=== PATIENT | female | born 1940 | race Caucasian/White ===

== ENCOUNTER 2023-03-11 21:04 | Inpatient (IN) ==
[2023-03-11] MEDS ORDERED: IOPAMIDOL 100 ML BOTTLE IV ONE (21:05)
[2023-03-11] MEDS ORDERED: IPRATROPIUM/ALBUTEROL 3 ML AMPUL.NEB NEB ONE ×2 (21:11→23:09)
[2023-03-11] MEDS ORDERED: methylPREDNISolone SOD SUCC 125 MG/2 ML VIAL IV ONE (21:11)
[2023-03-11 22:19] LABS: Basophils # (Auto) 0.03 K/mcL (0.00-0.30); Basophils % (Auto) 0.6 % (0.0-2.0); Eosinophils # (Auto) 0.17 K/mcL (0.00-0.70); Eosinophils % (Auto) 3.4 % (0.0-7.0); Hematocrit 43.4 % (34.1-44.9); Lymphocytes # (Auto) 1.59 K/mcL (1.50-4.80); Lymphocytes % (Auto) 32.1 % (15.5-49.0); Mean Cell Volume 95.4 fL (80.0-100.0); Mean Corpuscular HGB Conc 32.3 g/dL (31.0-36.0); Mean Platelet Volume 10.1 fL (8.8-12.5); Monocytes # (Auto) 0.41 K/mcL (0.10-0.90); Monocytes % (Auto) 8.3 % (1.0-12.0); Neutrophils % (Auto) 55.4 % (38.0-78.0); Platelet Count 190 K/mcL (140-440); RBC 4.55 M/mcL (3.59-5.38); Red Cell Distribution Width 12.5 % (11.5-14.5)
[2023-03-11 23:03] LABS: ALT/SGPT 11 U/L (<40); AST/SGOT 20 U/L (<32); Albumin/Globulin Ratio 1.3 (1.0-2.3); Alkaline Phosphatase 123 U/L (39-117); Bilirubin,Total 0.5 mg/dL (0.1-1.0); Blood Urea Nitrogen 29 mg/dL (8-23); Calcium 9.5 mg/dL (8.6-10.4); Carbon Dioxide 23 mmol/L (22-30); Chloride 106 mmol/L (96-108); Globulin 3.1 gm/dL (2.2-3.7); Glomerular Filtration Rate 51; Glucose 84 mg/dL (70-105); proBNP 505.7 pg/mL (<450.0)
[2023-03-11] MEDS ORDERED: cefTRIAXone 1 GM VIAL IV ONE (23:14)
[2023-03-11] MEDS ORDERED: AZITHROMYCIN 500 MG in DEXTROSE 5% IN WATER 250 ML IV ONE (23:14)
[2023-03-11] MEDS ORDERED: ALBUTEROL SULFATE 2.5 MG/3 ML NEBULIZER NEB PRN (23:48)
[2023-03-11] MEDS ORDERED: ONDANSETRON 4 MG/2 ML VIAL IV ONE (23:48)
[2023-03-12] MEDS: IPRATROPIUM/ALBUTEROL 3 ML AMPUL.NEB NEB SCH ×6 (01:30→23:30)
[2023-03-12] MEDS: methylPREDNISolone SOD SUCC 40 MG/ML VIAL IV SCH ×2 (04:02→05:15)
[2023-03-12] MEDS ORDERED: 0.9 % SODIUM CHLORIDE 10 ML SYRINGE IV SCH (06:00)
[2023-03-12] MEDS ORDERED: ALBUTEROL SULFATE 60 PUFF INHALER INH PRN (08:48)
[2023-03-12] MEDS ORDERED: ACETAMINOPHEN 500 MG TABLET PO PRN (08:48)
[2023-03-12] MEDS ORDERED: ONDANSETRON 4 MG/2 ML VIAL IV PRN (08:50)
[2023-03-12] MEDS ORDERED: LACTULOSE 20 GM/30 ML ORAL.SOL PO PRN (08:50)
[2023-03-12] MEDS ORDERED: SENNOSIDES 1 TABLET PO PRN (08:50)
[2023-03-12] MEDS ORDERED: ACETAMINOPHEN 325 MG TABLET PO PRN (08:53)
[2023-03-12] MEDS ORDERED: guaiFENesin/DEXTROMETHORPHAN 5ML UD CUP PO PRN (08:55)
[2023-03-12] MEDS: METOPROLOL SUCCINATE 25 MG TAB.XL.24H PO SCH (09:26)
[2023-03-12] MEDS: DOCUSATE SODIUM 100 MG CAPSULE PO SCH ×2 (09:26→20:02)
[2023-03-12] MEDS: FLUTICASONE/SALMETEROL 250/50 INHALER #14 INH SCH ×2 (09:41→21:31)
[2023-03-12] MEDS: APIXABAN 2.5 MG TABLET PO SCH ×2 (10:50→20:02)
[2023-03-12] MEDS: methylPREDNISolone SOD SUCC 125 MG/2 ML VIAL IV SCH ×2 (15:03→21:31)
[2023-03-12] MEDS: AZITHROMYCIN 250 MG TABLET PO SCH (15:04)
[2023-03-12] MEDS: 0.9 % SODIUM CHLORIDE 10 ML SYRINGE IV SCH ×2 (15:05→21:31)
[2023-03-12] MEDS ORDERED: traZODone HCL 50 MG TABLET PO PRN (20:08)
[2023-03-12] MEDS ORDERED: POLYETHYLENE GLYCOL 3350 17 GM PACKET PO SCH (21:00)
[2023-03-12] MEDS ORDERED: APIXABAN 2.5 MG TABLET PO SCH (21:00)
[2023-03-13] MEDS: IPRATROPIUM/ALBUTEROL 3 ML AMPUL.NEB NEB SCH ×6 (03:35→22:45)
[2023-03-13] MEDS: methylPREDNISolone SOD SUCC 125 MG/2 ML VIAL IV SCH ×3 (05:17→22:06)
[2023-03-13] MEDS: 0.9 % SODIUM CHLORIDE 10 ML SYRINGE IV SCH ×3 (05:17→22:06)
[2023-03-13 06:09] LABS: Basophils # (Auto) 0 K/mcL (0.00-0.30); Basophils % (Auto) 0 % (0.0-2.0); Eosinophils # (Auto) 0 K/mcL (0.00-0.70); Eosinophils % (Auto) 0 % (0.0-7.0); Hematocrit 39.3 % (34.1-44.9); Hemoglobin 12.5 g/dL (11.2-15.7); Lymphocytes # (Auto) 0.65 K/mcL (1.50-4.80); Lymphocytes % (Auto) 6.3 % (15.5-49.0); Mean Cell Volume 98.3 fL (80.0-100.0); Mean Corpuscular HGB Conc 31.8 g/dL (31.0-36.0); Mean Platelet Volume 10.1 fL (8.8-12.5); Monocytes # (Auto) 0.41 K/mcL (0.10-0.90); Neutrophils % (Auto) 89.3 % (38.0-78.0); Platelet Count 181 K/mcL (140-440); Red Cell Distribution Width 12.5 % (11.5-14.5); WBC 10.4 K/mcL (4.5-11.0)
[2023-03-13 06:53] LABS: ALT/SGPT 10 U/L (<40); AST/SGOT 21 U/L (<32); Albumin 3.5 gm/dL (3.2-5.2); Albumin/Globulin Ratio 1.4 (1.0-2.3); Alkaline Phosphatase 107 U/L (39-117); Bilirubin,Total 0.3 mg/dL (0.1-1.0); Blood Urea Nitrogen 23 mg/dL (8-23); Calcium 9.4 mg/dL (8.6-10.4); Carbon Dioxide 23 mmol/L (22-30); Chloride 104 mmol/L (96-108); Globulin 2.5 gm/dL (2.2-3.7); Glomerular Filtration Rate 58; Glucose 164 mg/dL (70-105)
[2023-03-13] MEDS: METOPROLOL SUCCINATE 25 MG TAB.XL.24H PO SCH (10:10)
[2023-03-13] MEDS: DOCUSATE SODIUM 100 MG CAPSULE PO SCH ×2 (10:10→20:29)
[2023-03-13] MEDS: APIXABAN 2.5 MG TABLET PO SCH ×2 (10:11→20:29)
[2023-03-13] MEDS: FLUTICASONE/SALMETEROL 250/50 INHALER #14 INH SCH ×2 (10:11→20:29)
[2023-03-13] MEDS: CALCIUM CARBONATE 500 MG TAB.CHEW CHEWED PRN ×2 (10:46→21:02)
[2023-03-13] MEDS: AZITHROMYCIN 250 MG TABLET PO SCH (15:30)
[2023-03-14] MEDS: IPRATROPIUM/ALBUTEROL 3 ML AMPUL.NEB NEB SCH ×3 (02:19→10:39)
[2023-03-14] MEDS: 0.9 % SODIUM CHLORIDE 10 ML SYRINGE IV SCH (05:50)
[2023-03-14] MEDS: methylPREDNISolone SOD SUCC 125 MG/2 ML VIAL IV SCH (05:50)
[2023-03-14 06:19] LABS: Basophils # (Auto) 0.01 K/mcL (0.00-0.30); Basophils % (Auto) 0.1 % (0.0-2.0); Eosinophils # (Auto) 0 K/mcL (0.00-0.70); Eosinophils % (Auto) 0 % (0.0-7.0); Hemoglobin 12.4 g/dL (11.2-15.7); Lymphocytes # (Auto) 0.63 K/mcL (1.50-4.80); Lymphocytes % (Auto) 5.2 % (15.5-49.0); Mean Cell Volume 97.5 fL (80.0-100.0); Mean Corpuscular HGB Conc 31.8 g/dL (31.0-36.0); Monocytes # (Auto) 0.47 K/mcL (0.10-0.90); Monocytes % (Auto) 3.9 % (1.0-12.0); Neutrophils % (Auto) 90.1 % (38.0-78.0); Platelet Count 188 K/mcL (140-440); Red Cell Distribution Width 12.7 % (11.5-14.5); WBC 12.2 K/mcL (4.5-11.0)
[2023-03-14 06:52] LABS: ALT/SGPT 17 U/L (<40); AST/SGOT 25 U/L (<32); Albumin 3.3 gm/dL (3.2-5.2); Albumin/Globulin Ratio 1.3 (1.0-2.3); Alkaline Phosphatase 99 U/L (39-117); Bilirubin,Total 0.2 mg/dL (0.1-1.0); Blood Urea Nitrogen 29 mg/dL (8-23); Calcium 9.2 mg/dL (8.6-10.4); Carbon Dioxide 25 mmol/L (22-30); Chloride 106 mmol/L (96-108); Globulin 2.5 gm/dL (2.2-3.7); Glomerular Filtration Rate 51; Glucose 148 mg/dL (70-105)
[2023-03-14] MEDS: METOPROLOL SUCCINATE 25 MG TAB.XL.24H PO SCH (08:39)
[2023-03-14] MEDS: DOCUSATE SODIUM 100 MG CAPSULE PO SCH (08:39)
[2023-03-14] MEDS: APIXABAN 2.5 MG TABLET PO SCH (08:40)
[2023-03-14] MEDS: FLUTICASONE/SALMETEROL 250/50 INHALER #14 INH SCH (08:46)
== END 2023-03-14 11:05 | disposition home or self-care (01) | DRG 191 ==
LOC: ED 21:04 → ICU 03-12 00:40
PROVIDERS: ADMIT Internal Medicine; ATTEND Internal Medicine

== ENCOUNTER 2023-06-23 22:36 | Inpatient (IN) ==
[2023-06-23 23:21] LABS: Hematocrit 43.9 % (34.1-44.9); Hemoglobin 14.3 g/dL (11.2-15.7); Mean Cell Volume 97.3 fL (80.0-100.0); Mean Corpuscular HGB Conc 32.6 g/dL (31.0-36.0); Mean Platelet Volume 10.1 fL (8.8-12.5); Platelet Count 189 K/mcL (140-440); RBC 4.51 M/mcL (3.59-5.38); Red Cell Distribution Width 12.7 % (11.5-14.5); WBC 6.1 K/mcL (4.5-11.0)
[2023-06-23] MEDS: IPRATROPIUM/ALBUTEROL 3 ML AMPUL.NEB NEB ONE (23:27)
[2023-06-23] MEDS: ACETAMINOPHEN 325 MG TABLET PO ONE (23:40)
[2023-06-23] MEDS: methylPREDNISolone SOD SUCC 125 MG/2 ML VIAL IV ONE (23:40)
[2023-06-23 23:48] LABS: INR 1.1 (0.9-1.1); Prothrombin Time 15.2 sec (11.9-14.5)
[2023-06-23 23:57] LABS: Band Neutrophils % 2 % (0-10); Eosinophils % (Manual) 1 % (0-7); Lymphocytes % 22 % (15-49); Monocytes % (Manual) 5 % (1-12); Platelet Estimate NORMAL (Normal); RBC Morphology NORMAL (Normal); Segmented Neutrophils % 70 % (38-78)
[2023-06-24 00:10] LABS: ALT/SGPT 7 U/L (<40); AST/SGOT 28 U/L (<32); Albumin 4.2 gm/dL (3.2-5.2); Albumin/Globulin Ratio 1.4 (1.0-2.3); Alkaline Phosphatase 102 U/L (39-117); Anion Gap 18.6 (8.0-16.0); Bilirubin,Total 0.4 mg/dL (0.1-1.0); Blood Urea Nitrogen 21 mg/dL (8-23); Calcium 9.4 mg/dL (8.6-10.4); Carbon Dioxide 21 mmol/L (22-30); Chloride 101 mmol/L (96-108); Glomerular Filtration Rate 41; Glucose 147 mg/dL (70-105)
[2023-06-24] MEDS: VANCOMYCIN 750 MG in 0.9 % SODIUM CHLORIDE 250 ML IV ONE (01:15)
[2023-06-24] MEDS: MEROPENEM 0.5 GM in 0.9 % SODIUM CHLORIDE 50 ML IV SCH (01:20)
[2023-06-24] MEDS: morphine 2 MG/ML VIAL IV ONE (01:27)
[2023-06-24] MEDS ORDERED: morphine 2 MG/ML VIAL IV PRN (01:31)
[2023-06-24] MEDS ORDERED: ACETAMINOPHEN 650 MG/65 ML BAG IV PRN (01:31)
[2023-06-24] MEDS ORDERED: ONDANSETRON 4 MG/2 ML VIAL IV PRN (01:31)
[2023-06-24] MEDS ORDERED: IPRATROPIUM/ALBUTEROL 3 ML AMPUL.NEB NEB SCH (01:45)
[2023-06-24] MEDS ORDERED: DEXMEDETOMIDINE 400 MCG in PREMIX 1 BAG IV PRN (01:45)
[2023-06-24] MEDS: VANCOMYCIN PER PHARMACY IV ONE (01:52)
[2023-06-24] MEDS: morphine 2 MG/ML VIAL ONE (01:53)
[2023-06-24] MEDS: 0.9 % SODIUM CHLORIDE 500 ML IV ONE (02:05)
[2023-06-24 02:25] LABS: Appearance,Urine Clear (Clear); Bilirubin,Urine Negative (Negative); Color,Urine Yellow; Culture Indicated,Urine No; Glucose,Urine (UA) Negative (Negative); Ketones,Urine 15 mg/dL (Negative); Leukocyte Esterase,Urine Negative /uL (Negative); Nitrate,Urine Negative (Negative); Protein,Urine Negative (Negative); Specific Gravity,Urine 1.025 (1.000-1.035); Urine Blood Negative ery/mcL (Negative); Urobilinogen,Urine Normal
[2023-06-24] MEDS: AZITHROMYCIN 500 MG in DEXTROSE 5% IN WATER 250 ML IV SCH (02:33)
[2023-06-24] MEDS: REMDESIVIR 200 MG in 0.9 % SODIUM CHLORIDE 250 ML IV ONE (03:11)
[2023-06-24] MEDS: 0.9 % SODIUM CHLORIDE 1,000 ML IV SCH (05:09)
[2023-06-24] MEDS ORDERED: LACTULOSE 20 GM/30 ML ORAL.SOL PO PRN (06:38)
[2023-06-24] MEDS ORDERED: SENNOSIDES 1 TABLET PO PRN (06:38)
[2023-06-24] MEDS: CEFEPIME 2 GM VIAL IV SCH (07:13)
[2023-06-24] MEDS: IPRATROPIUM/ALBUTEROL 3 ML AMPUL.NEB NEB SCH ×2 (07:18→17:16)
[2023-06-24 08:57] LABS: ALT/SGPT 6 U/L (<40); AST/SGOT 25 U/L (<32); Albumin 3.3 gm/dL (3.2-5.2); Albumin/Globulin Ratio 1.3 (1.0-2.3); Alkaline Phosphatase 74 U/L (39-117); Bilirubin,Direct < 0.2 mg/dL (0-0.3); Bilirubin,Total 0.3 mg/dL (0.1-1.0); Blood Urea Nitrogen 20 mg/dL (8-23); C-Reactive Protein 3.15 mg/dL (0.03-0.80); Calcium 8.6 mg/dL (8.6-10.4); Carbon Dioxide 21 mmol/L (22-30); Chloride 103 mmol/L (96-108); Globulin 2.6 gm/dL (2.2-3.7); Glomerular Filtration Rate 58; Glucose 188 mg/dL (70-105); Lactate Dehydrogenase 202 U/L (135-225); Phosphorous 2.8 mg/dL (2.5-4.5); Triglycerides 44 mg/dL (<150); Uric Acid 4.4 mg/dL (2.5-8.0)
[2023-06-24] MEDS: DEXAMETHASONE 10 MG/ML VIAL IV SCH (09:05)
[2023-06-24] MEDS: DOCUSATE SODIUM 100 MG CAPSULE PO SCH (09:05)
[2023-06-24] MEDS: ONDANSETRON 4 MG/2 ML VIAL IV PRN (09:18)
[2023-06-24] MEDS: APIXABAN 2.5 MG TABLET PO SCH ×2 (10:29→21:59)
[2023-06-24] MEDS: 0.9 % SODIUM CHLORIDE 10 ML SYRINGE IV SCH (14:01)
[2023-06-24] MEDS: REMDESIVIR 100 MG in 0.9 % SODIUM CHLORIDE 250 ML IV SCH (16:46)
[2023-06-24] MEDS: IPRATROPIUM/ALBUTEROL 3 ML AMPUL.NEB NEB ONE (17:19)
[2023-06-24] MEDS: ACETAMINOPHEN 325 MG TABLET PO PRN (18:32)
[2023-06-25 06:40] LABS: Basophils # (Auto) 0.01 K/mcL (0.00-0.30); Basophils % (Auto) 0.1 % (0.0-2.0); Eosinophils # (Auto) 0 K/mcL (0.00-0.70); Eosinophils % (Auto) 0 % (0.0-7.0); Hematocrit 37.2 % (34.1-44.9); Hemoglobin 11.7 g/dL (11.2-15.7); Lymphocytes # (Auto) 0.88 K/mcL (1.50-4.80); Lymphocytes % (Auto) 6.4 % (15.5-49.0); Mean Cell Volume 101.1 fL (80.0-100.0); Mean Corpuscular HGB Conc 31.5 g/dL (31.0-36.0); Mean Platelet Volume 10.3 fL (8.8-12.5); Monocytes # (Auto) 0.55 K/mcL (0.10-0.90); Neutrophils % (Auto) 89.1 % (38.0-78.0); Platelet Count 166 K/mcL (140-440); RBC 3.68 M/mcL (3.59-5.38); WBC 13.8 K/mcL (4.5-11.0)
[2023-06-25 07:01] LABS: ALT/SGPT 8 U/L (<40); AST/SGOT 27 U/L (<32); Albumin 3.4 gm/dL (3.2-5.2); Albumin/Globulin Ratio 1.3 (1.0-2.3); Alkaline Phosphatase 73 U/L (39-117); Bilirubin,Direct < 0.2 mg/dL (0-0.3); Bilirubin,Total 0.2 mg/dL (0.1-1.0); Blood Urea Nitrogen 22 mg/dL (8-23); Calcium 8.6 mg/dL (8.6-10.4); Carbon Dioxide 20 mmol/L (22-30); Chloride 110 mmol/L (96-108); Globulin 2.7 gm/dL (2.2-3.7); Glomerular Filtration Rate 67; Glucose 114 mg/dL (70-105); Lactate Dehydrogenase 238 U/L (135-225); Phosphorous 3.2 mg/dL (2.5-4.5); Triglycerides 31 mg/dL (<150)
[2023-06-25] MEDS: ALBUTEROL SULFATE 2.5 MG/3 ML NEBULIZER NEB PRN (21:27)
[2023-06-26 06:36] LABS: Basophils # (Auto) 0.01 K/mcL (0.00-0.30); Basophils % (Auto) 0.1 % (0.0-2.0); Eosinophils # (Auto) 0 K/mcL (0.00-0.70); Eosinophils % (Auto) 0 % (0.0-7.0); Hematocrit 36.7 % (34.1-44.9); Hemoglobin 11.9 g/dL (11.2-15.7); Lymphocytes # (Auto) 1.02 K/mcL (1.50-4.80); Lymphocytes % (Auto) 7.8 % (15.5-49.0); Mean Cell Volume 98.7 fL (80.0-100.0); Mean Corpuscular HGB Conc 32.4 g/dL (31.0-36.0); Mean Platelet Volume 10.2 fL (8.8-12.5); Monocytes # (Auto) 0.62 K/mcL (0.10-0.90); Monocytes % (Auto) 4.8 % (1.0-12.0); Neutrophils % (Auto) 87.1 % (38.0-78.0); Platelet Count 170 K/mcL (140-440); RBC 3.72 M/mcL (3.59-5.38); Red Cell Distribution Width 13.1 % (11.5-14.5)
[2023-06-26 07:10] LABS: ALT/SGPT 15 U/L (<40); AST/SGOT 34 U/L (<32); Albumin 3.1 gm/dL (3.2-5.2); Albumin/Globulin Ratio 1.1 (1.0-2.3); Alkaline Phosphatase 76 U/L (39-117); Bilirubin,Direct < 0.2 mg/dL (0-0.3); Bilirubin,Total 0.4 mg/dL (0.1-1.0); Blood Urea Nitrogen 22 mg/dL (8-23); Calcium 8.7 mg/dL (8.6-10.4); Carbon Dioxide 19 mmol/L (22-30); Chloride 109 mmol/L (96-108); Globulin 2.9 gm/dL (2.2-3.7); Glomerular Filtration Rate 79; Glucose 110 mg/dL (70-105); Lactate Dehydrogenase 300 U/L (135-225); Phosphorous 2.6 mg/dL (2.5-4.5); Triglycerides 48 mg/dL (<150); Uric Acid 3.7 mg/dL (2.5-8.0)
[2023-06-26] MEDS ORDERED: ENALAPRILAT 1.25 MG/ML VIAL IV PRN (14:48)
[2023-06-26] MEDS ORDERED: LABETALOL HCL 20 MG/4 ML VIAL IV PRN (14:48)
[2023-06-27 07:24] LABS: Basophils # (Auto) 0.01 K/mcL (0.00-0.30); Basophils % (Auto) 0.1 % (0.0-2.0); Eosinophils # (Auto) 0 K/mcL (0.00-0.70); Eosinophils % (Auto) 0 % (0.0-7.0); Hematocrit 39.8 % (34.1-44.9); Hemoglobin 13.2 g/dL (11.2-15.7); Lymphocytes # (Auto) 1.42 K/mcL (1.50-4.80); Lymphocytes % (Auto) 14.2 % (15.5-49.0); Mean Cell Volume 96.4 fL (80.0-100.0); Mean Corpuscular HGB Conc 33.2 g/dL (31.0-36.0); Mean Platelet Volume 10.6 fL (8.8-12.5); Monocytes # (Auto) 0.57 K/mcL (0.10-0.90); Monocytes % (Auto) 5.7 % (1.0-12.0); Neutrophils % (Auto) 79.7 % (38.0-78.0); Platelet Count 169 K/mcL (140-440); RBC 4.13 M/mcL (3.59-5.38)
[2023-06-27 07:43] LABS: ALT/SGPT 16 U/L (<40); AST/SGOT 42 U/L (<32); Albumin 3.5 gm/dL (3.2-5.2); Albumin/Globulin Ratio 1.2 (1.0-2.3); Alkaline Phosphatase 85 U/L (39-117); Bilirubin,Direct < 0.2 mg/dL (0-0.3); Bilirubin,Total 0.6 mg/dL (0.1-1.0); Blood Urea Nitrogen 21 mg/dL (8-23); Carbon Dioxide 24 mmol/L (22-30); Chloride 106 mmol/L (96-108); Glomerular Filtration Rate 79; Glucose 111 mg/dL (70-105); Lactate Dehydrogenase 382 U/L (135-225); Phosphorous 2.4 mg/dL (2.5-4.5); Triglycerides 75 mg/dL (<150); Uric Acid 3.4 mg/dL (2.5-8.0)
[2023-06-27] MEDS: METOPROLOL SUCCINATE 25 MG TAB.XL.24H PO SCH (09:03)
[2023-06-27] MEDS: BUDESONIDE 0.5 MG/2 ML AMPUL.NEB NEB SCH (12:27)
== END 2023-06-27 15:15 | disposition home or self-care (01) | DRG 177 ==
LOC: ED 22:36 → ICU 06-24 04:11 → MEDSUR 06-25 14:45
PROVIDERS: ADMIT Internal Medicine; ATTEND Internal Medicine

== ENCOUNTER 2024-02-02 12:32 | Inpatient (IN) ==
[2024-02-02 13:32] LABS: Basophils # (Auto) 0.01 K/mcL (0.00-0.30); Basophils % (Auto) 0.1 % (0.0-2.0); Eosinophils # (Auto) 0.16 K/mcL (0.00-0.70); Eosinophils % (Auto) 1.7 % (0.0-7.0); Hematocrit 46.8 % (34.1-44.9); Hemoglobin 14.8 g/dL (11.2-15.7); Lymphocytes # (Auto) 1.35 K/mcL (1.50-4.80); Lymphocytes % (Auto) 14.2 % (15.5-49.0); Mean Cell Volume 99.2 fL (80.0-100.0); Mean Corpuscular HGB Conc 31.6 g/dL (31.0-36.0); Mean Platelet Volume 9.9 fL (8.8-12.5); Monocytes # (Auto) 0.71 K/mcL (0.10-0.90); Monocytes % (Auto) 7.5 % (1.0-12.0); Neutrophils % (Auto) 76.1 % (38.0-78.0); Platelet Count 217 K/mcL (140-440); RBC 4.72 M/mcL (3.59-5.38); Red Cell Distribution Width 13.1 % (11.5-14.5); WBC 9.5 K/mcL (4.5-11.0)
[2024-02-02 13:51] LABS: ALT/SGPT 19 U/L (<40); AST/SGOT 28 U/L (<32); Albumin/Globulin Ratio 1.5 (1.0-2.3); Alkaline Phosphatase 111 U/L (39-117); Bilirubin,Total 0.7 mg/dL (0.1-1.0); Blood Urea Nitrogen 22 mg/dL (8-23); Calcium 9.2 mg/dL (8.6-10.4); Carbon Dioxide 28 mmol/L (22-30); Chloride 103 mmol/L (96-108); Globulin 2.7 gm/dL (2.2-3.7); Glomerular Filtration Rate 51; Glucose 82 mg/dL (70-105); Sodium 142 mmol/L (133-145)
[2024-02-02] MEDS: IPRATROPIUM/ALBUTEROL 3 ML AMPUL.NEB NEB PRN (14:55)
[2024-02-02 15:22] LABS: C-Reactive Protein 0.48 mg/dL (0.03-0.80)
[2024-02-02] MEDS: IPRATROPIUM/ALBUTEROL 3 ML AMPUL.NEB NEB SCH (19:48)
[2024-02-02] MEDS ORDERED: SENNOSIDES 1 TABLET PO PRN (21:37)
[2024-02-02] MEDS: HEPARIN 5,000 UNIT/ML VIAL SQ SCH (22:29)
[2024-02-02] MEDS: methylPREDNISolone SOD SUCC 125 MG/2 ML VIAL IV ONE (22:29)
[2024-02-02] MEDS: DOCUSATE SODIUM 100 MG CAPSULE PO SCH (22:29)
[2024-02-02] MEDS: 0.9 % SODIUM CHLORIDE 10 ML SYRINGE IV SCH (22:29)
[2024-02-03 06:32] LABS: Basophils # (Auto) 0 K/mcL (0.00-0.30); Basophils % (Auto) 0 % (0.0-2.0); Eosinophils # (Auto) 0 K/mcL (0.00-0.70); Eosinophils % (Auto) 0 % (0.0-7.0); Hematocrit 39.6 % (34.1-44.9); Hemoglobin 13.1 g/dL (11.2-15.7); Lymphocytes # (Auto) 0.43 K/mcL (1.50-4.80); Lymphocytes % (Auto) 7.2 % (15.5-49.0); Mean Cell Volume 95.4 fL (80.0-100.0); Mean Corpuscular HGB Conc 33.1 g/dL (31.0-36.0); Mean Platelet Volume 10.1 fL (8.8-12.5); Monocytes # (Auto) 0.09 K/mcL (0.10-0.90); Monocytes % (Auto) 1.5 % (1.0-12.0); Neutrophils % (Auto) 91.1 % (38.0-78.0); Platelet Count 186 K/mcL (140-440); RBC 4.15 M/mcL (3.59-5.38)
[2024-02-03 06:53] LABS: ALT/SGPT 15 U/L (<40); AST/SGOT 19 U/L (<32); Albumin 3.5 gm/dL (3.2-5.2); Albumin/Globulin Ratio 1.5 (1.0-2.3); Alkaline Phosphatase 87 U/L (39-117); Bilirubin,Direct < 0.2 mg/dL (0-0.3); Bilirubin,Total 0.5 mg/dL (0.1-1.0); Blood Urea Nitrogen 25 mg/dL (8-23); Calcium 8.8 mg/dL (8.6-10.4); Carbon Dioxide 26 mmol/L (22-30); Chloride 103 mmol/L (96-108); Globulin 2.3 gm/dL (2.2-3.7); Glomerular Filtration Rate 58; Glucose 185 mg/dL (70-105); Lactate Dehydrogenase 206 U/L (135-225); Phosphorous 3.7 mg/dL (2.5-4.5); Potassium 4.5 mmol/L (3.3-5.1); Sodium 140 mmol/L (133-145); Triglycerides 84 mg/dL (<150); Uric Acid 4.7 mg/dL (2.5-8.0)
[2024-02-03] MEDS: methylPREDNISolone SOD SUCC 125 MG/2 ML VIAL IV SCH ×2 (09:18→20:55)
[2024-02-03] MEDS: ACETAMINOPHEN 325 MG TABLET PO PRN (14:24)
[2024-02-03] MEDS: GABAPENTIN 100 MG CAPSULE PO SCH (20:56)
[2024-02-03] MEDS: FLUTICASONE PROPION SALMETEROL INH SCH (22:20)
[2024-02-04 06:48] LABS: Basophils # (Auto) 0.01 K/mcL (0.00-0.30); Basophils % (Auto) 0.1 % (0.0-2.0); Eosinophils # (Auto) 0 K/mcL (0.00-0.70); Eosinophils % (Auto) 0 % (0.0-7.0); Hematocrit 42.6 % (34.1-44.9); Hemoglobin 13.8 g/dL (11.2-15.7); Mean Cell Volume 99.1 fL (80.0-100.0); Mean Corpuscular HGB Conc 32.4 g/dL (31.0-36.0); Mean Platelet Volume 10.3 fL (8.8-12.5); Monocytes # (Auto) 0.38 K/mcL (0.10-0.90); Neutrophils % (Auto) 92.7 % (38.0-78.0); Platelet Count 204 K/mcL (140-440); WBC 12.6 K/mcL (4.5-11.0)
[2024-02-04 07:19] LABS: ALT/SGPT 14 U/L (<40); AST/SGOT 19 U/L (<32); Albumin 3.7 gm/dL (3.2-5.2); Albumin/Globulin Ratio 1.6 (1.0-2.3); Alkaline Phosphatase 89 U/L (39-117); Bilirubin,Direct < 0.2 mg/dL (0-0.3); Bilirubin,Total 0.4 mg/dL (0.1-1.0); Blood Urea Nitrogen 31 mg/dL (8-23); Carbon Dioxide 26 mmol/L (22-30); Chloride 103 mmol/L (96-108); Globulin 2.3 gm/dL (2.2-3.7); Glomerular Filtration Rate 51; Glucose 141 mg/dL (70-105); Lactate Dehydrogenase 233 U/L (135-225); Phosphorous 3.9 mg/dL (2.5-4.5); Potassium 4.5 mmol/L (3.3-5.1); Sodium 141 mmol/L (133-145); Triglycerides 82 mg/dL (<150); Uric Acid 4.7 mg/dL (2.5-8.0)
[2024-02-04] MEDS: METOPROLOL SUCCINATE 25 MG TAB.XL.24H PO SCH (08:53)
[2024-02-04] MEDS: IPRATROPIUM/ALBUTEROL 3 ML AMPUL.NEB NEB SCH (13:10)
[2024-02-04] MEDS: ONDANSETRON 4 MG/2 ML VIAL IV PRN (20:48)
[2024-02-05 06:02] LABS: Basophils # (Auto) 0 K/mcL (0.00-0.30); Basophils % (Auto) 0 % (0.0-2.0); Eosinophils # (Auto) 0 K/mcL (0.00-0.70); Eosinophils % (Auto) 0 % (0.0-7.0); Hematocrit 41.9 % (34.1-44.9); Hemoglobin 13.5 g/dL (11.2-15.7); Lymphocytes # (Auto) 0.71 K/mcL (1.50-4.80); Lymphocytes % (Auto) 6.7 % (15.5-49.0); Mean Cell Volume 98.1 fL (80.0-100.0); Mean Corpuscular HGB Conc 32.2 g/dL (31.0-36.0); Mean Platelet Volume 9.9 fL (8.8-12.5); Monocytes # (Auto) 0.44 K/mcL (0.10-0.90); Monocytes % (Auto) 4.1 % (1.0-12.0); Neutrophils % (Auto) 88.8 % (38.0-78.0); Platelet Count 201 K/mcL (140-440); RBC 4.27 M/mcL (3.59-5.38); WBC 10.6 K/mcL (4.5-11.0)
[2024-02-05 06:51] LABS: ALT/SGPT 13 U/L (<40); AST/SGOT 20 U/L (<32); Albumin 3.5 gm/dL (3.2-5.2); Albumin/Globulin Ratio 1.5 (1.0-2.3); Alkaline Phosphatase 81 U/L (39-117); Bilirubin,Direct < 0.2 mg/dL (0-0.3); Bilirubin,Total 0.4 mg/dL (0.1-1.0); Blood Urea Nitrogen 31 mg/dL (8-23); Carbon Dioxide 28 mmol/L (22-30); Chloride 104 mmol/L (96-108); Globulin 2.3 gm/dL (2.2-3.7); Glomerular Filtration Rate 51; Glucose 130 mg/dL (70-105); Lactate Dehydrogenase 185 U/L (135-225); Phosphorous 3.9 mg/dL (2.5-4.5); Sodium 141 mmol/L (133-145); Triglycerides 95 mg/dL (<150); Uric Acid 4.9 mg/dL (2.5-8.0)
[2024-02-05] MEDS: OMEPRAZOLE 20 MG CAPSULE PO SCH (12:32)
[2024-02-05] MEDS: MAG HYDROX/AL HYDROX/SIMETH 30 ML ORAL.SUSP PO PRN (12:32)
[2024-02-05] MEDS: APIXABAN 5 MG TABLET PO SCH (20:33)
[2024-02-06 06:23] LABS: Basophils # (Auto) 0 K/mcL (0.00-0.30); Basophils % (Auto) 0 % (0.0-2.0); Eosinophils # (Auto) 0 K/mcL (0.00-0.70); Eosinophils % (Auto) 0 % (0.0-7.0); Hematocrit 42.4 % (34.1-44.9); Hemoglobin 13.6 g/dL (11.2-15.7); Lymphocytes # (Auto) 1.44 K/mcL (1.50-4.80); Lymphocytes % (Auto) 17.5 % (15.5-49.0); Mean Cell Volume 99.1 fL (80.0-100.0); Mean Corpuscular HGB Conc 32.1 g/dL (31.0-36.0); Mean Platelet Volume 10.1 fL (8.8-12.5); Monocytes # (Auto) 0.75 K/mcL (0.10-0.90); Monocytes % (Auto) 9.1 % (1.0-12.0); Platelet Count 186 K/mcL (140-440); RBC 4.28 M/mcL (3.59-5.38); Red Cell Distribution Width 12.9 % (11.5-14.5); WBC 8.2 K/mcL (4.5-11.0)
[2024-02-06 06:55] LABS: ALT/SGPT 15 U/L (<40); AST/SGOT 19 U/L (<32); Albumin 3.4 gm/dL (3.2-5.2); Albumin/Globulin Ratio 1.6 (1.0-2.3); Alkaline Phosphatase 77 U/L (39-117); Bilirubin,Direct < 0.2 mg/dL (0-0.3); Bilirubin,Total 0.4 mg/dL (0.1-1.0); Blood Urea Nitrogen 35 mg/dL (8-23); Carbon Dioxide 30 mmol/L (22-30); Chloride 104 mmol/L (96-108); Globulin 2.1 gm/dL (2.2-3.7); Glomerular Filtration Rate 51; Glucose 80 mg/dL (70-105); Lactate Dehydrogenase 195 U/L (135-225); Phosphorous 3.4 mg/dL (2.5-4.5); Potassium 4.7 mmol/L (3.3-5.1); Sodium 141 mmol/L (133-145); Triglycerides 103 mg/dL (<150); Uric Acid 5.2 mg/dL (2.5-8.0)
[2024-02-06] MEDS: methylPREDNISolone SOD SUCC 125 MG/2 ML VIAL IV SCH (08:47)
[2024-02-06] MEDS ORDERED: methylPREDNISolone SOD SUCC 125 MG/2 ML VIAL IV SCH (09:00)
[2024-02-06] MEDS: MAGNESIUM HYDROXIDE 30 ML ORAL.SUSP PO PRN (10:18)
[2024-02-07 06:47] LABS: Basophils # (Auto) 0.01 K/mcL (0.00-0.30); Basophils % (Auto) 0.1 % (0.0-2.0); Eosinophils # (Auto) 0.01 K/mcL (0.00-0.70); Eosinophils % (Auto) 0.1 % (0.0-7.0); Hematocrit 40.9 % (34.1-44.9); Hemoglobin 12.9 g/dL (11.2-15.7); Lymphocytes # (Auto) 1.65 K/mcL (1.50-4.80); Lymphocytes % (Auto) 23.3 % (15.5-49.0); Mean Cell Volume 100.2 fL (80.0-100.0); Mean Corpuscular HGB Conc 31.5 g/dL (31.0-36.0); Monocytes # (Auto) 0.62 K/mcL (0.10-0.90); Monocytes % (Auto) 8.8 % (1.0-12.0); Neutrophils % (Auto) 67.3 % (38.0-78.0); Platelet Count 190 K/mcL (140-440); RBC 4.08 M/mcL (3.59-5.38); WBC 7.1 K/mcL (4.5-11.0)
[2024-02-07 07:22] LABS: ALT/SGPT 18 U/L (<40); AST/SGOT 22 U/L (<32); Albumin 3.3 gm/dL (3.2-5.2); Albumin/Globulin Ratio 1.7 (1.0-2.3); Alkaline Phosphatase 83 U/L (39-117); Bilirubin,Direct < 0.2 mg/dL (0-0.3); Bilirubin,Total 0.3 mg/dL (0.1-1.0); Blood Urea Nitrogen 37 mg/dL (8-23); Calcium 8.5 mg/dL (8.6-10.4); Carbon Dioxide 30 mmol/L (22-30); Chloride 103 mmol/L (96-108); Glomerular Filtration Rate 58; Glucose 79 mg/dL (70-105); Lactate Dehydrogenase 183 U/L (135-225); Phosphorous 2.7 mg/dL (2.5-4.5); Potassium 4.1 mmol/L (3.3-5.1); Sodium 141 mmol/L (133-145); Triglycerides 105 mg/dL (<150); Uric Acid 5.3 mg/dL (2.5-8.0)
[2024-02-07] MEDS: predniSONE 20 MG TABLET PO SCH (09:30)
== END 2024-02-08 09:58 | disposition home health service (06) | DRG 190 ==
LOC: ED 12:32 → ICU 21:13 → MEDSUR 02-04 15:17
PROVIDERS: ADMIT Student in an Organized Health Care Education/Training Program; ATTEND Student in an Organized Health Care Education/Training Program

== ENCOUNTER 2024-03-03 22:38 | Inpatient (IN) ==
[2024-03-03] MEDS: IPRATROPIUM/ALBUTEROL 3 ML AMPUL.NEB NEB ONE (23:18)
[2024-03-03 23:39] LABS: Basophils # (Auto) 0.03 K/mcL (0.00-0.30); Basophils % (Auto) 0.3 % (0.0-2.0); Eosinophils # (Auto) 0.09 K/mcL (0.00-0.70); Hematocrit 43.4 % (34.1-44.9); Hemoglobin 13.6 g/dL (11.2-15.7); Lymphocytes # (Auto) 1.35 K/mcL (1.50-4.80); Mean Cell Volume 101.2 fL (80.0-100.0); Mean Corpuscular HGB Conc 31.3 g/dL (31.0-36.0); Mean Platelet Volume 9.3 fL (8.8-12.5); Monocytes # (Auto) 0.54 K/mcL (0.10-0.90); Neutrophils % (Auto) 76.9 % (38.0-78.0); Platelet Count 196 K/mcL (140-440); RBC 4.29 M/mcL (3.59-5.38); Red Cell Distribution Width 13.9 % (11.5-14.5)
[2024-03-04 00:01] LABS: ALT/SGPT 79 U/L (<40); AST/SGOT 48 U/L (<32); Albumin 3.7 gm/dL (3.2-5.2); Albumin/Globulin Ratio 1.4 (1.0-2.3); Alkaline Phosphatase 117 U/L (39-117); Bilirubin,Total 0.6 mg/dL (0.1-1.0); Blood Urea Nitrogen 28 mg/dL (8-23); Calcium 9.1 mg/dL (8.6-10.4); Carbon Dioxide 26 mmol/L (22-30); Chloride 106 mmol/L (96-108); Globulin 2.6 gm/dL (2.2-3.7); Glomerular Filtration Rate 45; Glucose 153 mg/dL (70-105); Potassium 4.4 mmol/L (3.3-5.1); Sodium 143 mmol/L (133-145)
[2024-03-04 00:24] LABS: Appearance,Urine Clear (Clear); Bilirubin,Urine Negative (Negative); Color,Urine Yellow; Glucose,Urine (UA) Negative (Negative); Ketones,Urine Negative (Negative); Leukocyte Esterase,Urine Trace /uL (Negative); Nitrate,Urine Negative (Negative); Protein,Urine Trace mg/dL (Negative); Specific Gravity,Urine 1.025 (1.000-1.035); Urine Blood Trace-intact ery/mcL (Negative); Urine RBC 4 /hpf (0-3); Urine Squamous Epithelial Cell 3 /hpf (0-4); Urine Transitional Epi Cells 2 /hpf (0-2); Urine WBC 15 /hpf (0-4)
[2024-03-04] MEDS: methylPREDNISolone SOD SUCC 125 MG/2 ML VIAL IM ONE (01:14)
[2024-03-04] MEDS ORDERED: POTASSIUM CHLORIDE 20 MEQ TABLET PO PRN ×2 (07:30)
[2024-03-04] MEDS ORDERED: SENNOSIDES 1 TABLET PO PRN (07:30)
[2024-03-04] MEDS ORDERED: POLYETHYLENE GLYCOL 3350 17 GM PACKET PO PRN (07:30)
[2024-03-04] MEDS ORDERED: POTASSIUM CHLORIDE 40 MEQ in DEXTROSE 5% IN WATER 500 ML IV PRN (07:30)
[2024-03-04] MEDS ORDERED: ACETAMINOPHEN 325 MG TABLET PO PRN (07:30)
[2024-03-04] MEDS ORDERED: METOPROLOL TARTRATE 5 MG/5 ML VIAL IV PRN (07:30)
[2024-03-04] MEDS ORDERED: MAGNESIUM SULFATE 2 GM/50 ML BAG IV PRN (07:30)
[2024-03-04] MEDS ORDERED: AZITHROMYCIN 500 MG in DEXTROSE 5% IN WATER 250 ML IV SCH (09:00)
[2024-03-04] MEDS: IPRATROPIUM/ALBUTEROL 3 ML AMPUL.NEB NEB PRN (09:02)
[2024-03-04] MEDS: BUDESONIDE 0.5 MG/2 ML AMPUL.NEB NEB SCH (09:03)
[2024-03-04] MEDS: FUROSEMIDE 40 MG/4 ML VIAL IV SCH (09:28)
[2024-03-04] MEDS: predniSONE 5 MG TABLET PO SCH (09:28)
[2024-03-04] MEDS: AZITHROMYCIN 500 MG in 0.9 % SODIUM CHLORIDE 250 ML IV SCH (09:28)
[2024-03-04] MEDS: METOPROLOL SUCCINATE 25 MG TAB.XL.24H PO SCH (09:28)
[2024-03-04] MEDS: DOCUSATE SODIUM 100 MG CAPSULE PO SCH (09:28)
[2024-03-04] MEDS: ONDANSETRON 4 MG/2 ML VIAL IV PRN (10:33)
[2024-03-04] MEDS: APIXABAN 2.5 MG TABLET PO SCH (10:33)
[2024-03-04] MEDS: METOCLOPRAMIDE 10 MG/2 ML VIAL IV PRN (10:57)
[2024-03-04] MEDS: IPRATROPIUM/ALBUTEROL 3 ML AMPUL.NEB NEB SCH (13:01)
[2024-03-04] MEDS: 0.9 % SODIUM CHLORIDE 10 ML SYRINGE IV SCH (13:57)
[2024-03-04] MEDS: methylPREDNISolone SOD SUCC 40 MG/ML VIAL IV SCH (13:57)
[2024-03-04] MEDS ORDERED: methylPREDNISolone SOD SUCC 125 MG/2 ML VIAL IV SCH (14:00)
[2024-03-04] MEDS ORDERED: APIXABAN 2.5 MG TABLET PO SCH (21:00)
[2024-03-04] MEDS: GABAPENTIN 100 MG CAPSULE PO SCH (21:23)
[2024-03-05 06:39] LABS: ALT/SGPT 56 U/L (<40); AST/SGOT 43 U/L (<32); Albumin 3.4 gm/dL (3.2-5.2); Albumin/Globulin Ratio 1.3 (1.0-2.3); Alkaline Phosphatase 93 U/L (39-117); Bilirubin,Direct < 0.2 mg/dL (0-0.3); Bilirubin,Total 0.4 mg/dL (0.1-1.0); Blood Urea Nitrogen 36 mg/dL (8-23); C-Reactive Protein 4.05 mg/dL (0.03-0.80); Calcium 9.1 mg/dL (8.6-10.4); Carbon Dioxide 23 mmol/L (22-30); Chloride 105 mmol/L (96-108); Globulin 2.7 gm/dL (2.2-3.7); Glomerular Filtration Rate 41; Glucose 156 mg/dL (70-105); Lactate Dehydrogenase 426 U/L (135-225); Phosphorous 4.3 mg/dL (2.5-4.5); Potassium 5.1 mmol/L (3.3-5.1); Sodium 141 mmol/L (133-145); Triglycerides 68 mg/dL (<150); Uric Acid 6.1 mg/dL (2.5-8.0)
[2024-03-05 07:53] LABS: Hematocrit 44.7 % (34.1-44.9); Hemoglobin 13.8 g/dL (11.2-15.7); Mean Cell Volume 103.2 fL (80.0-100.0); Mean Corpuscular HGB Conc 30.9 g/dL (31.0-36.0); Mean Platelet Volume 9.3 fL (8.8-12.5); Platelet Count 167 K/mcL (140-440); RBC 4.33 M/mcL (3.59-5.38); Red Cell Distribution Width 13.7 % (11.5-14.5)
[2024-03-05 08:16] LABS: Lymphocytes % 9 % (15-49); Monocytes % (Manual) 2 % (1-12); Platelet Estimate NORMAL (Normal); RBC Morphology NORMAL (Normal); Segmented Neutrophils % 89 % (38-78)
[2024-03-05] MEDS: diphenhydrAMINE 50 MG/ML VIAL IV SCH (11:40)
[2024-03-05] MEDS: CALCIUM CARBONATE 500 MG TAB.CHEW CHEWED PRN (15:45)
[2024-03-05] MEDS: BISMUTH SUBSALICYLATE 15 ML ORAL.SUSP PO SCH (16:58)
[2024-03-05] MEDS: methylPREDNISolone SOD SUCC 40 MG/ML VIAL IV SCH (20:52)
[2024-03-06 06:49] LABS: ALT/SGPT 44 U/L (<40); AST/SGOT 21 U/L (<32); Albumin 3.4 gm/dL (3.2-5.2); Albumin/Globulin Ratio 1.4 (1.0-2.3); Alkaline Phosphatase 87 U/L (39-117); Bilirubin,Direct < 0.2 mg/dL (0-0.3); Bilirubin,Total 0.4 mg/dL (0.1-1.0); Blood Urea Nitrogen 37 mg/dL (8-23); C-Reactive Protein 2.06 mg/dL (0.03-0.80); Calcium 9.3 mg/dL (8.6-10.4); Carbon Dioxide 28 mmol/L (22-30); Chloride 104 mmol/L (96-108); Globulin 2.5 gm/dL (2.2-3.7); Glomerular Filtration Rate 45; Glucose 137 mg/dL (70-105); Lactate Dehydrogenase 257 U/L (135-225); Phosphorous 4.6 mg/dL (2.5-4.5); Potassium 5.1 mmol/L (3.3-5.1); Sodium 142 mmol/L (133-145); Triglycerides 100 mg/dL (<150); Uric Acid 5.8 mg/dL (2.5-8.0)
[2024-03-06] MEDS: predniSONE 20 MG TABLET PO SCH (09:34)
[2024-03-07] MEDS: POLYETHYLENE GLYCOL 3350 17 GM PACKET PO ONE (09:29)
== END 2024-03-07 10:33 | disposition home or self-care (01) | DRG 189 ==
LOC: ED 22:38 → ICU 03-04 04:37 → MEDSUR 03-05 17:04
PROVIDERS: ADMIT Internal Medicine; ATTEND Internal Medicine

== ENCOUNTER 2024-03-11 23:00 | Inpatient (IN) ==
[2024-03-11] MEDS ORDERED: IOPAMIDOL 100 ML BOTTLE IV ONE (23:01)
[2024-03-11] MEDS: ACETAMINOPHEN 1,000 MG/100 ML BAG IV ONE (23:32)
[2024-03-11] MEDS: ONDANSETRON 4 MG/2 ML VIAL IV ONE (23:32)
[2024-03-12 00:19] LABS: Basophils # (Auto) 0.02 K/mcL (0.00-0.30); Basophils % (Auto) 0.2 % (0.0-2.0); Eosinophils # (Auto) 0.01 K/mcL (0.00-0.70); Eosinophils % (Auto) 0.1 % (0.0-7.0); Hematocrit 33.3 % (34.1-44.9); Hemoglobin 10.7 g/dL (11.2-15.7); Lymphocytes # (Auto) 3.27 K/mcL (1.50-4.80); Lymphocytes % (Auto) 29.4 % (15.5-49.0); Mean Cell Volume 101.8 fL (80.0-100.0); Mean Corpuscular HGB Conc 32.1 g/dL (31.0-36.0); Mean Platelet Volume 10.1 fL (8.8-12.5); Monocytes # (Auto) 0.57 K/mcL (0.10-0.90); Monocytes % (Auto) 5.1 % (1.0-12.0); Neutrophils % (Auto) 63.9 % (38.0-78.0); Platelet Count 225 K/mcL (140-440); RBC 3.27 M/mcL (3.59-5.38); WBC 11.1 K/mcL (4.5-11.0)
[2024-03-12 00:27] LABS: ALT/SGPT 35 U/L (<40); AST/SGOT 35 U/L (<32); Albumin 3.4 gm/dL (3.2-5.2); Albumin/Globulin Ratio 1.9 (1.0-2.3); Alkaline Phosphatase 80 U/L (39-117); Bilirubin,Total 0.5 mg/dL (0.1-1.0); Blood Urea Nitrogen 62 mg/dL (8-23); Calcium 8.4 mg/dL (8.6-10.4); Carbon Dioxide 24 mmol/L (22-30); Chloride 107 mmol/L (96-108); Globulin 1.8 gm/dL (2.2-3.7); Glomerular Filtration Rate 41; Glucose 169 mg/dL (70-105); Potassium 4.8 mmol/L (3.3-5.1); Sodium 144 mmol/L (133-145)
[2024-03-12] MEDS: ONDANSETRON 4 MG/2 ML VIAL IV ONE ×2 (01:15→04:00)
[2024-03-12] MEDS: 0.9 % SODIUM CHLORIDE 1,000 ML IV ONE ×2 (02:37→04:00)
[2024-03-12] MEDS: METOCLOPRAMIDE 10 MG/2 ML VIAL IV ONE (02:58)
[2024-03-12] MEDS: PANTOPRAZOLE 40 MG VIAL IV ONE (04:04)
[2024-03-12 04:11] LABS: POC Calcium, Ionized 1.15 (1.16-1.32); POC Creatinine 1.2 (0.6-1.2); POC Potassium 4.9 (3.3-5.1)
[2024-03-12] MEDS: LORazepam 2 MG/ML VIAL IV ONE (04:14)
[2024-03-12 04:49] LABS: Basophils # (Auto) 0.01 K/mcL (0.00-0.30); Basophils % (Auto) 0.1 % (0.0-2.0); Eosinophils # (Auto) 0.01 K/mcL (0.00-0.70); Eosinophils % (Auto) 0.1 % (0.0-7.0); Hematocrit 22.5 % (34.1-44.9); Hemoglobin 6.9 g/dL (11.2-15.7); Lymphocytes % (Auto) 30.5 % (15.5-49.0); Mean Cell Volume 106.1 fL (80.0-100.0); Mean Corpuscular HGB Conc 30.7 g/dL (31.0-36.0); Monocytes # (Auto) 0.47 K/mcL (0.10-0.90); Neutrophils % (Auto) 62.3 % (38.0-78.0); Platelet Count 162 K/mcL (140-440); RBC 2.12 M/mcL (3.59-5.38); WBC 7.9 K/mcL (4.5-11.0)
[2024-03-12] MEDS ORDERED: ONDANSETRON 4 MG/2 ML VIAL IV PRN (05:23)
[2024-03-12] MEDS: 0.9 % SODIUM CHLORIDE 250 ML IV SCH (06:00)
[2024-03-12 07:22] LABS: Appearance,Urine Clear (Clear); Bilirubin,Urine Negative (Negative); Color,Urine Yellow; Glucose,Urine (UA) >=1000 mg/dL (Negative); Ketones,Urine Negative (Negative); Leukocyte Esterase,Urine Negative /uL (Negative); Nitrate,Urine Negative (Negative); PH,Urine 5.5 (5.0-9.0); Protein,Urine Negative (Negative); Urine Blood Negative ery/mcL (Negative); Urine RBC 0 /hpf (0-3); Urine Squamous Epithelial Cell 0 /hpf (0-4); Urine WBC 0 /hpf (0-4); Urobilinogen,Urine Normal
[2024-03-12] MEDS ORDERED: ONDANSETRON 4 MG ODT TABLET SL PRN (08:35)
[2024-03-12] MEDS ORDERED: ALBUTEROL SULFATE 2.5 MG/3 ML NEBULIZER NEB PRN (08:35)
[2024-03-12] MEDS ORDERED: LACTOPEROXI/GLUC OXID/POT THIO 1 EACH GEL..EA. TOPICAL PRN (08:35)
[2024-03-12] MEDS: morphine 4 MG/ML VIAL NEB PRN (08:57)
[2024-03-12] MEDS ORDERED: MAGNESIUM HYDROXIDE 30 ML ORAL.SUSP PO PRN (09:12)
[2024-03-12] MEDS ORDERED: BISACODYL 10 MG SUPP.RECT PR PRN (09:12)
[2024-03-12] MEDS ORDERED: IPRATROPIUM/ALBUTEROL 3 ML AMPUL.NEB NEB PRN (09:12)
[2024-03-12] MEDS ORDERED: PROMETHAZINE 25 MG/ML VIAL IV PRN (09:12)
[2024-03-12] MEDS ORDERED: ACETAMINOPHEN 325 MG TABLET PO PRN (09:12)
[2024-03-12] MEDS ORDERED: PROCHLORPERAZINE 10 MG/2 ML VIAL IV PRN (09:12)
[2024-03-12] MEDS: DOCUSATE SODIUM 100 MG CAPSULE PO SCH ×2 (09:16→09:36)
[2024-03-12] MEDS: HYDROmorphone 1 MG/ML SYRINGE IV PRN (09:20)
[2024-03-12] MEDS: SCOPOLAMINE 1 PATCH PATCH TOPICAL SCH (09:37)
[2024-03-12] MEDS: FAMOTIDINE/PF 20 MG/2 ML VIAL IV SCH (10:21)
[2024-03-12] MEDS: LORazepam 2 MG/ML VIAL IV PRN (10:21)
[2024-03-12] MEDS ORDERED: 0.9 % SODIUM CHLORIDE 10 ML SYRINGE IV SCH (14:00)
[2024-03-12] MEDS: 0.9 % SODIUM CHLORIDE 10 ML SYRINGE IV SCH (15:26)
[2024-03-12] MEDS ORDERED: IPRATROPIUM 2.5 ML AMPUL.NEB INH PRN (16:32)
[2024-03-12] MEDS ORDERED: ALBUTEROL SULFATE 60 PUFF INHALER INH PRN (16:32)
[2024-03-12] MEDS: morphine 4 MG/ML VIAL IV PRN (17:44)
[2024-03-12] MEDS: ONDANSETRON 4 MG/2 ML VIAL IV PRN (17:50)
[2024-03-12] MEDS: POLYETHYLENE GLYCOL 3350 17 GM PACKET PO SCH (20:48)
[2024-03-12] MEDS: GABAPENTIN 100 MG CAPSULE PO SCH (20:48)
[2024-03-12] MEDS: SENNOSIDES 1 TABLET PO SCH (20:48)
[2024-03-12] MEDS: FLUTICASONE PROPION SALMETEROL INH SCH (20:48)
[2024-03-12] MEDS: MUPIROCIN OINT 2% 22GM TOPICAL SCH (20:48)
[2024-03-13] MEDS: predniSONE 5 MG TABLET PO SCH (08:07)
[2024-03-13] MEDS: SCOPOLAMINE 1 PATCH PATCH TOPICAL SCH (12:45)
== END 2024-03-14 16:00 | disposition expired | DRG 951 ==
LOC: ED 23:00 → ICU 23:00
PROVIDERS: ADMIT Internal Medicine; ATTEND Internal Medicine